=== PATIENT | female | born 1960 | race Two or more races ===

== ENCOUNTER 2017-01-17 18:00 | Emergency (ER) | payer OTHER ==
[~2017-01-17] VITALS: Ht 149.9 cm; Wt 67.1 kg
[2017-01-17] MEDS ORDERED: NAPROXEN25 G1 MC (18:15)
[2017-01-17 18:40] VITALS: BP 114/76
[2017-01-17 18:50] VITALS: BP 114/76
--- NOTE | 2017-01-17 19:03 | Emergency Room Report ---
History of Present Illness General Chief Complaint: Laceration Source: Patient Present Illness HPI 56 y/o female c/o cut on right thumb earlier this morning while at work. 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 States it bled a little bit and she cleaned it and put a bandaid. States she is UTD on Tdap and states that she has no physical complaints currently. States her employer is sending her here for evaluation as injury occurred at work. Patient denies any numbness, tingling, pressure, paralysis, cyanosis, bruising, loss of sensation, or loss of range of motion. Allergies: Coded Allergies: No Known Allergies (Unverified , 01/17/17) Patient History Past Medical History: see triage record Past Surgical History: none Pertinent Family History: none Now: No : 3 Para: 3 Immunizations: UTD Reviewed Nursing Documentation: PMH: Agreed, PSxH: Agreed Nursing Documentation-PMH Past Medical History: No History, Except For Hx Cardiac Problems: No - plantar fasciitis Review of Systems All Other Systems: negative except mentioned in HPI Physical Exam Vital Signs Date Time Temp Pulse Resp B/P Pulse Ox O2 Delivery O2 Flow Rate FiO2 01/17/17 18:11 97.9 66 18 114/76 97 Room Air Sp02 EP Interpretation: reviewed, normal General Appearance: no apparent distress, alert, GCS 15, non-toxic Head: normocephalic, atraumatic ENT: normal ENT inspection Respiratory: normal breath sounds, no respiratory distress, speaking full sentences Cardiovascular #1: normal capillary refill Cardiovascular #2: 2+ radial (R), 2+ radial (L) Musculoskeletal: back normal, digits/nails normal, gait/station normal, normal range of motion, non-tender Neurologic: alert, oriented x3, motor strength/tone normal Psychiatric: judgement/insight normal, memory normal, mood/affect normal, no suicidal/homicidal ideation Skin: normal color, no rash, warm/dry, well hydrated, laceration - superficial laceration of right thumb approx 2cm in length. Does not extend past dermal layer. No signs of foreign body or infection. Lymphatic: no adenopathy Medical Decision Making PA Attestation Dr. Romero is my supervising physician with whom patient management has been discussed with. Diagnostic Impression: Primary Impression: Laceration ER Course Pt. presents to the ED c/o laceration Ddx considered but are not limited to abrasion, contusion, laceration Vital signs: are WNL, pt. is afebrile H&PE are most consistent with shallow laceration ORDERS: none required at this time, the diagnosis is clinical ED INTERVENTIONS: none required at this time. DISCHARGE: At this time pt. is stable for d/c to home. Will provide printed patient care instructions, and any necessary prescriptions. Care plan and follow up instructions have been discussed with the patient prior to discharge. Last Vital Signs Date Time Temp Pulse Resp B/P Pulse Ox O2 Delivery O2 Flow Rate FiO2 01/17/17 18:11 97.9 66 18 114/76 97 Room Air Disposition: HOME, SELF-CARE Condition: Stable Departure Forms: Return to Work Patient Instructions: Nonsutured Laceration Care HAYDEN COREA January 17, 2017 19:03
== END 2017-01-17 18:50 | disposition home or self-care (01) ==
LOC: EMR 18:35
DX: S61.011A Laceration without foreign body of right thumb without damage to nail, initial encounter (principal); W26.8XXA Contact with other sharp object(s), not elsewhere classified, initial encounter; Y93.E9 Activity, other interior property and clothing maintenance; Y99.0 Civilian activity done for income or pay
CPT/HCPCS: 99283